=== PATIENT | male | born 1980 | race Caucasian/White ===

== ENCOUNTER → 2016-06-20 | Outpatient (CLI) | payer BC ==
[~2016-06-20] MED LIST: AMOX400T12 PO; BENZ200C25 PO; BUTA1TAB46 PO; CITA40TA19 PO; CTLP20T PO; DOCU-143 PO; FAMO20TA5 PO; FLUT9.9S NS; HYDR-3812 PO; HYDR25CA92 PO; MELO-198 PO; ONDA-42 SL; ONDA4TAB8 SL; SUMA25TA4; SUMA25TA4 PO; TOPI100T PO; TPR100T PO
--- NOTE | 2016-06-20 15:09 | Diagnostic Imaging Report ---
PROCEDURE: US Gallbladder. TECHNIQUE: Multiple real-time grayscale images were obtained over the right upper quadrant in various projections. INDICATION: Abdominal pain. FINDINGS: There are no prior studies available for comparison. The CT chest exam of 03/02/2018 failed to show any abnormality of the gallbladder. On this study, there is no evidence for cholelithiasis or acute cholecystitis and the common bile duct is not dilated. The liver does not appear to be enlarged. There is no focal mass involving the liver and the biliary tree is not abnormally distended. The pancreas is obscured by bowel gas as is the proximal aorta. The right kidney is within normal limits. IMPRESSION: 1. There is no evidence for cholelithiasis or acute cholecystitis. 2. If clinical concern regarding an underlying abnormality of the gallbladder persists, then a nuclear medicine hepatobiliary scan will be recommended for further study. Dictated by: Dictated on workstation # [id number]
== END ==
LOC: RAD 08:21
PROVIDERS: ATTEND Family Medicine
DX: R10.84 Generalized abdominal pain (principal)
CPT/HCPCS: 76705

== ENCOUNTER → 2016-07-10 | Outpatient (CLI) | payer BC ==
[~2016-07-10] MED LIST changes: +CATHETER FLUSH 10 ML SYR IV PRN
--- NOTE | 2016-07-10 13:24 | Diagnostic Imaging Report ---
EXAMINATION: HIDA with EF measurements Indication: Abdominal pain TECHNIQUE: After the intravenous administration of 5.1 mCi of Tc 99m Choletec, imaging over the abdomen was obtained. This was followed by administration of Ensure orally to stimulate intrinsic CCK secretion, followed by continued imaging with ejection fraction measured. FINDINGS: There is homogeneous uptake in the liver with prompt bile duct and gallbladder filling seen. Bowel activity is seen at 10 minutes. Based on further imaging and gallbladder area of interest activity measurements after the administration of Ensure, the gallbladder ejection fraction is estimated at 17%. IMPRESSION: 1. Normal hepatobiliary uptake and Gallbladder filling. 2. Biliary dyskinesia. Poor gallbladder ejection fraction. Dictated by: Dictated on workstation # [id number]
== END ==
LOC: CARD 09:48
PROVIDERS: ATTEND Family Medicine
DX: R10.84 Generalized abdominal pain (principal)
CPT/HCPCS: 78227

== ENCOUNTER 2016-07-11 15:51 | Emergency (ER) | payer BC ==
[~2016-07-11] VITALS: Ht 182.9 cm; Wt 97.5 kg
[~2016-07-11 15:51] MED LIST changes: -CATHETER FLUSH 10 ML SYR IV PRN; -CITA40TA19 PO; -DOCU-143 PO; -FLUT9.9S NS; -HYDR-3812 PO; -SUMA25TA4; -SUMA25TA4 PO; -TOPI100T PO
[2016-07-11] MEDS ORDERED: PROMETHAZINE INJ 25 MG/ML (PHENERGAN) AMP IVP STA (16:14)
[2016-07-11] MEDS ORDERED: KETOROLAC 30 MG/ML VIAL IVP STA (16:14)
[2016-07-11] MEDS ORDERED: diphenhydrAMINE 50 MG/ML INJ (BENADRYL) IV STA (16:14)
[2016-07-11] MEDS ORDERED: NS IV 1000 ML 1,000 ML IV ONE (16:14)
--- NOTE | 2016-07-11 16:18 | ED Headache ---
General Chief Complaint: Head/Cervical Problems Stated Complaint: MIGRAINE Source: patient Exam Limitations: no limitations History of Present Illness Time seen by provider: 16:07 Initial Comments Here with report of headache that started at the base of his neck and then moved and behind his eyes over the last 12 hours. He did take an Imitrex this morning that did not resolve the pain. He did sleep and then took another Imitrex when he woke up. He vomited twice after that. Does have history of migraines and states this is fairly typical. Denies any recent illness, fevers or upper respiratory infection. Timing/Duration: constant, other (12 hours) Severity/Quality: moderate Location: frontal, occipital, parietal Associated Symptoms: No fever/chills, nausea/vomiting, No nasal congestion, No nasal drainage, No seizures, No stiff neck, No weakness Allergies and Home Medications Allergies Coded Allergies: No Known Drug Allergies (Unverified , 04/01/13) Home Medications Citalopram Hydrobromide 20 Mg Tablet, 1 EACH PO DAILY, (Reported) Sumatriptan Succinate 25 Mg Tablet, #8 (Reported) Topiramate 100 Mg Tablet, 1 TAB PO BID, #30 (Reported) Constitutional: see HPI, No chills, No fever Eyes: See HPI, Denies Drainage, Photophobia Ears, Nose, Mouth, Throat: no symptoms reported Respiratory: no symptoms reported Cardiovascular: no symptoms reported Gastrointestinal: nausea, vomiting Genitourinary: no symptoms reported All Other Systems Reviewed Negative Unless Noted: Yes Past Lkvnylu-Wklwgj-Tkyhmo Hx Patient Social History Alcohol Use: Denies Use Recreational Drug Use: No Smoking Status: Never a Smoker Recent Foreign Travel: No Contact w/Someone Who Travel: No Recent Hopitalizations: No Immunizations Up To Date Tetanus Booster (TDap): Unknown PED Vaccines UTD: Yes Seasonal Allergies Seasonal Allergies: Yes Surgeries HX Surgeries: No Respiratory Hx Respiratory Disorders: Yes Respiratory Disorders: Sleep Apnea Cardiovascular Hx Cardiac Disorders: No Neurological Hx Neurological Disorders: Yes Neurological Disorders: Headaches /Migraines Reproductive System Hx Reproductive Disorders: No Sexually Transmitted Disease: No Genitourinary Hx Genitourinary Disorders: No Gastrointestinal Hx Gastrointestinal Disorders: Yes Gastrointestinal Disorders: Gastroesophageal Reflux Musculoskeletal Hx Musculoskeletal Disorders: Yes Musculoskeletal Disorders: Arthritis, Chronic Back Pain Endocrine Hx Endocrine Disorders: No HEENT HX ENT Disorders: No Cancer Hx Cancer: No Psychosocial Hx Psychiatric Problems: Yes Behavioral Health Disorders: Depression Integumentary HX Skin/Integumentary Disorder: No Blood Transfusions Hx Blood Disorders: No Adverse Reaction to a Blood Tr: No Reviewed Nursing Assessment Reviewed/Agree w Nursing PMH: Yes Family Medical History Significant Family History: No Pertinent Family Hx Physical Exam Vital Signs Vital Sign - Last 12Hours 07/11/16 16:05 Temp 97.4 Pulse 79 Resp 18 B/P (MAP) 137/91 Pulse Ox 99 Capillary Refill : General Appearance: WD/WN, no apparent distress HEENT: PERRL/EOMI, pharynx normal Neck: full range of motion, supple Cardiovascular: regular rate, rhythm, no murmur Respiratory: lungs clear, normal breath sounds Gastrointestinal: non tender, soft Back: normal inspection, no CVA tenderness, no vertebral tenderness Extremities: non-tender, normal inspection Psychiatric: alert, oriented x 3 Crainal Nerves: normal hearing, normal speech, PERRL Coordination/Gait: normal gait Motor/Sensory: no motor deficit, no sensory deficit, no pronator drift Skin: normal color, warm/dry Progress/Results/Core Measures Results/Orders My Orders Orders - NHI FARIA MD Saline Lock/Iv-Start (07/11/16 16:14) Ns Iv 1000 Ml (Sodium Chloride 0.9%) (07/11/16 16:14) Promethazine Injection (Phenergan Injec (07/11/16 16:14) Diphenhydramine Injection (Benadryl Inje (07/11/16 16:14) Ketorolac Injection (Toradol Injection) (07/11/16 16:14) Medications Given in ED Current Medications Medications Dose Ordered Sig/Tyson Route Start Time Stop Time Status Last Admin Dose Admin Sodium Chloride 1,000 ml @ 0 mls/hr Q0M ONCE IV 07/11/16 16:14 07/11/16 16:17 DC 07/11/16 16:27 1,000 MLS/HR Vital Signs/I&O Vital Sign - Last 12Hours 07/11/16 16:05 Temp 97.4 Pulse 79 Resp 18 B/P (MAP) 137/91 Pulse Ox 99 Progress Note : Progress Note Seen and evaluated. IV, normal saline 1 L bolus, Phenergan 25 mg IV, Benadryl 25 mg IV and Toradol 30 mg IV. Monitor patient. 1722: Overall patient feels better. Discharged home with return precautions. Patient verbalize understanding instructions and agreement with plan. Departure Impression Impression: Primary Impression: Migraine Qualified Codes: G43.009 - Migraine without aura, not intractable, without status migrainosus Disposition: HOME, SELF-CARE Condition: Improved Departure-Patient Inst. Decision time for Depature: 17:23 Referrals: MARGIE KENNEY MD (PCP/Family) Primary Care Physician Patient Instructions: Migraine Headache (DC) Add. Discharge Instructions: All discharge instructions reviewed with patient and/or family. Voiced understanding. Continue home medications as directed. Drink plenty of fluids. You may take ibuprofen 800 mg at onset of headache and this may reduce your migraines. Follow-up with your doctor for recheck and further evaluation and discussion of long-term migraine medication. Return for worse pain, fever, vomiting, weakness , breathing problems or other concerns as needed. NHI FARIA MD Jul 11, 2016 16:18
[2016-07-11] MEDS ORDERED: SUMA25TA4 (16:20)
[2016-07-11 17:33] VITALS: BP 128/88
[2016-07-27] MEDS ORDERED: DOCU-143 PO (11:38)
[2016-07-27] MEDS ORDERED: HYDR-3812 PO (11:38)
--- OUTSIDE RECORDS SUMMARY | 2016-07-30 04:31 | XMS REPORT ---
Author Author MARGIE KENNEY eClinical[employer] Address Unknown Phone Unavailable Care Team Providers Care Button Spindler Name Role Phone MARGIE KENNEY CP Unavailable Allergies, Adverse Reactions, Alerts Substance Reaction Event Type N.K.D.A. Info Not Available Non Drug Allergy Problems Problem Type Condition Code Onset Dates Condition Status Problem Obstructive sleep apnea G47.33 Active Problem Generalized anxiety disorder F41.1 Active Problem Seizure disorder G40.909 Active Problem Low back pain M54.5 Active Assessment Obstructive sleep apnea G47.33 Active Medications Medication Code System Code Instructions Start Date End Date Status Dosage citalopram NDC 0 40 mg June 16, 2014 1 tablet by Oral route 1 time per day Topiramate NDC [address]-31 100 mg June 16, 2014 take 1 tablet ( 100 mg) by oral route 2 times per day Procedures Procedure Coding System Code Date Office Visit, Est Pt., Level 3 CPT-4 63200 Mar 18, 2015 Vital Signs Date/Time: Mar 18, 2015 Temperature 97.0 F Weight 224.2 lbs Height 72 in BMI 30.40 Index Blood Pressure Diastolic 80 mmHg Blood Pressure Systolic 118 mmHg Cardiac Monitoring Heart Rate 78 bpm Results No Known Results Summary Purpose eClinicalWorks Submission
--- OUTSIDE RECORDS SUMMARY | 2016-07-30 04:31 | XMS REPORT ---
Author SVETA Tinoco [facility] eClinicalWorks Address Unknown Phone Unavailable Care Team Providers Care Route Manager Name Role Phone SVETA MTZ CP Unavailable Allergies, Adverse Reactions, Alerts Substance Reaction Event Type N.K.D.A. Info Not Available Non Drug Allergy Problems Problem Type Condition Code Onset Dates Condition Status Problem Obstructive sleep apnea G47.33 Active Problem Generalized anxiety disorder F41.1 Active Problem Seizure disorder G40.909 Active Problem Low back pain M54.5 Active Assessment Rhinitis J31.0 Active Medications Medication Code System Code Instructions Start Date End Date Status Dosage Topiramate [facility] [address]-27 100 mg June 16, 2014 take 1 tablet ( 100 mg) by oral route 2 times per day Claritin-D 24 Hour [facility] [place] [address]-62 10-240 MG Orally Once a day Apr 06, 2015 Apr 20, 2015 1 tablet as needed citalopram [facility] 0 40 mg June 16, 2014 1 tablet by Oral route 1 time per day Flonase Allergy Relief [facility] [place] [address]-76 50 MCG/ACT Nasally Once a day Apr 06, 2015 1 spray in each nostril Procedures Procedure Coding System Code Date Office Visit, Est Pt., Level 3 CPT-4 84009 Apr 06, 2015 Vital Signs Date/Time: Apr 06, 2015 Temperature 97.9 F Weight 219.1 lbs Height 72 in BMI 29.71 Index Blood Pressure Diastolic 84 mmHg Blood Pressure Systolic 122 mmHg Cardiac Monitoring Heart Rate 80 bpm Results No Known Results Summary Purpose eClinicalWorks Submission
--- OUTSIDE RECORDS SUMMARY | 2016-07-30 04:31 | XMS REPORT ---
Author ELOISE Aivles [facility] eClinicalWorks Address Unknown Phone Unavailable Care Team Providers Care Lead Technologist In Cytogenetics Name Role Phone ELOISE TODD Unavailable Allergies, Adverse Reactions, Alerts Substance Reaction Event Type N.K.D.A. Info Not Available Non Drug Allergy Problems Problem Type Condition Code Onset Dates Condition Status Problem Obstructive sleep apnea G47.33 Active Problem Generalized anxiety disorder F41.1 Active Problem Seizure disorder G40.909 Active Assessment Acute vomiting R11.10 Active Problem Low back pain M54.5 Active Assessment Acute intractable tension-type headache G44.201 Active Medications Medication Code System Code Instructions Start Date End Date Status Dosage Topiramate [facility] [address]-53 100 mg June 16, 2014 take 1 tablet ( 100 mg) by oral route 2 times per day Flonase Allergy Relief [facility] [address]-17 50 MCG/ACT Nasally Once a day Apr 06, 2015 1 spray in each nostril citalopram [facility] 0 40 mg June 16, 2014 1 tablet by Oral route 1 time per day Claritin-D 24 Hour [facility] [address]-55 10-240 MG Orally Once a day Apr 06, 2015 Apr 20, 2015 1 tablet as needed Promethazine HCl [facility] [address]-30 12.5 MG Orally every 6 hrs, prn n/v/ Apr 08, 2015 Apr 11, 2015 1 tablet as needed Procedures Procedure Coding System Code Date PHENERGAN (IM) 12.5 MG (25 MG/ML) CPT-4 J2550 Apr 08, 2015 THER/PROPH/DIAG INJ, SC/IM CPT-4 06781 Apr 08, 2015 Office Visit, Est Pt., Level 3 CPT-4 46081 Apr 08, 2015 TORADOL (IM) 60 MG/2ML (UP TO 15 MG) CPT-4 J1885 Apr 08, 2015 Vital Signs Date/Time: Apr 08, 2015 Temperature 97.6 F Weight 217.2 lbs Height 72 in BMI 29.45 Index Blood Pressure Diastolic 90 mmHg Blood Pressure Systolic 120 mmHg Cardiac Monitoring Heart Rate 78 bpm Results No Known Results Summary Purpose eClinicalWorks Submission
--- OUTSIDE RECORDS SUMMARY | 2016-07-30 04:31 | XMS REPORT ---
Author Author MARGIE KENNEY [facility] eClinicalWorks Address Unknown Phone Unavailable Care Team Providers Care Drafter Structural Name Role Phone MARGIE KENNEY Unavailable Allergies No Known Allergies Problems Problem Type Condition Code Onset Dates Condition Status Problem Obstructive sleep apnea G47.33 Active Problem Generalized anxiety disorder F41.1 Active Problem Seizure disorder G40.909 Active Problem Low back pain M54.5 Active Medications No Known Medications Results No Known Results Summary Purpose eClinicalWorks Submission
--- OUTSIDE RECORDS SUMMARY | 2016-07-30 04:31 | XMS REPORT ---
Author Author PABLITOMARGIE WOLFE Organization [facility] Address [address] [place] [address] Care Team Providers Care Clinical Psychology Teacher Name Role Phone MARGIE KENNEY Unavailable PROBLEMS Type Condition ICD9-CM Code MSR77-BX Code Onset Dates Condition Status SNOMED Code Assessment Screening, lipid Z13.220 Dec, Active 984848861 Problem Cervicalgia M54.2 Active 564744878 Problem Headache, chronic migraine without aura G43.709 Active 181158647148441 Problem Low back pain M54.5 Active 811481477 Assessment Seizure disorder G40.909 Dec, Active 201571616 Problem Seizure disorder G40.909 Active 039060812 Problem Generalized anxiety disorder F41.1 Active 347738605 ALLERGIES Substance Reaction Event Type Date Status N.K.D.A. Unknown Non Drug Allergy Dec, Unknown SOCIAL HISTORY No smoking Hx information available PLAN OF CARE VITAL SIGNS Height 72 in 2015-12-23 Weight 214.4 lbs 2015-12-23 Heart Rate 78 bpm 2015-12-23 Respiratory Rate 18 2015-12-23 BMI 29.07 kg/m2 2015-12-23 Blood pressure systolic 124 mmHg 2015-12-23 Blood pressure diastolic 82 mmHg 2015-12-23 MEDICATIONS Medication Instructions Dosage Frequency Start Date End Date Duration Status Flonase Allergy Relief 50 MCG/ACT Nasally Once a day 1 spray in each nostril 24h Mar, 30 day(s) Active Citalopram Hydrobromide 40MG Orally Once a day 1 tablet 24h 90 days Active Topiramate 100MG Orally 3 times a day 1 tablet 8h 90 days Active Imitrex 25 MG Orally UD, no more than 200 mg/24h 1 tablet as needed at onset of headache, can repeat one in 2 hours if headache still present August, Active RESULTS No Results PROCEDURES Procedure Date Ordered Related Diagnosis Body Site Office Visit, Est Pt., Level 3 Dec 23, 2015 IMMUNIZATIONS No Known Immunizations
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
== END 2016-07-11 17:33 | disposition home or self-care (01) ==
LOC: EDUNIT# 15:51 → ER 15:52
DX: G43.909 Migraine, unspecified, not intractable, without status migrainosus (principal)
CPT/HCPCS: 96361; 96374; 96375

== ENCOUNTER 2016-07-24 05:34 | Outpatient (CLI) | payer BC ==
[~2016-07-24] VITALS: Ht 182.9 cm; Wt 98.5 kg
[~2016-07-24 05:34] MED LIST changes: +SUMA25TA4
[2016-07-24] MEDS ORDERED: SUMA25TA4 PO (09:51)
[2016-07-24] MEDS ORDERED: FLUT9.9S NS (09:51)
[2016-07-24] MEDS ORDERED: TOPI100T PO (09:51)
[2016-07-24] MEDS ORDERED: CITA40TA19 PO (09:51)
[2016-07-24 09:55] VITALS: BP 128/80
[2016-07-24 10:21] LABS: BASOPHILS % (AUTO) 0 % (0-10); EOSINOPHILS # (AUTO) 0.1 10^3/uL (0.0-0.3); EOSINOPHILS % (AUTO) 1 % (0-10); LYMPHOCYTES # (AUTO) 1.7 X 10^3 (1.0-4.0); LYMPHOCYTES % (AUTO) 29 % (12-44); MEAN CORPUSCULAR HEMOGLOBIN 29 PG (25-34); MEAN CORPUSCULAR HGB CONC 34 G/DL (32-36); MEAN CORPUSCULAR VOLUME 86 FL (80-99); MEAN PLATELET VOLUME 10.3 FL (7.4-10.4); MONOCYTES # (AUTO) 0.3 X 10^3 (0.0-1.0); MONOCYTES % (AUTO) 6 % (0-12); NEUTROPHILS # (AUTO) 3.8 X 10^3 (1.8-7.8); NEUTROPHILS % (AUTO) 65 % (42-75); PLATELET COUNT 209 10^3/uL (130-400); RED CELL DISTRIBUTION WIDTH 13.7 % (10.0-14.5); WHITE BLOOD COUNT 5.8 10^3/uL (4.3-11.0)
== END 2016-07-24 11:00 | disposition home or self-care (01) ==
LOC: PREOP 05:34
PROVIDERS: ATTEND Surgery
DX: Z01.812 Encounter for preprocedural laboratory examination (principal); Z11.2 Encounter for screening for other bacterial diseases; K82.8 Other specified diseases of gallbladder
CPT/HCPCS: 36415; 85025; 87081

== ENCOUNTER 2016-07-27 08:30 | Day surgery (SDC) | payer BC ==
[~2016-07-27] VITALS: Ht 182.9 cm; Wt 98.5 kg
[~2016-07-27 08:30] MED LIST changes: +CITA40TA19 PO; +FLUT9.9S NS; +SUMA25TA4 PO; +TOPI100T PO
[2016-07-27] MEDS ORDERED: ceFAZolin 2 GM/50 ML NS 50 ML IV ONE (08:43)
[2016-07-27 08:59] VITALS: BP 105/66
--- NOTE | 2016-07-27 09:15 | Progress Note-Pre Operative ---
Pre-Operative Progress Note H&P Reviewed The H&P was reviewed, patient examined and no changes noted. Date H&P Reviewed: Jul 27, 2016 Time H&P Reviewed: 09:15 Pre-Operative Diagnosis: biliary dyskinesia SHAYNA MONTES DE OCA DO Jul 27, 2016 9:15 am
[2016-07-27] MEDS ORDERED: CATHETER FLUSH 10 ML SYR IV PRN (09:30)
[2016-07-27] MEDS ORDERED: ceFAZolin 2 GM/NS 50 ML IV ONE (09:30)
[2016-07-27] MEDS ORDERED: LACTATED RINGERS 1,000 ML IV PRN (09:45)
[2016-07-27] MEDS ORDERED: BUPIVACAINE 0.5% 30 ML (SENSORCAINE) VIAL ONE (10:09)
[2016-07-27] MEDS ORDERED: LIDOCAINE 1% INJ 20 ML (XYLOCAINE) VIAL ONE (10:09)
[2016-07-27] MEDS ORDERED: proPOfol 200 MG/20 ML (DIPRIVAN) VIAL IV ONE (10:14)
[2016-07-27] MEDS ORDERED: ROCURONIUM 50 MG/5 ML (ZEMURON) VIAL IV ONE (10:14)
[2016-07-27] MEDS ORDERED: fentaNYL INJECTION 250 MCG/5 ML AMP ONE (10:14)
[2016-07-27] MEDS ORDERED: MIDAZOLAM 2 MG/2 ML (VERSED) VIAL ONE (10:14)
[2016-07-27] MEDS ORDERED: DEXAMETHASONE PF 10 MG/ML (DECADRON) VIAL ONE (10:14)
[2016-07-27] MEDS ORDERED: LIDOCAINE PF 2% 10 ML (XYLOCAINE) AMP ONE (10:14)
[2016-07-27] MEDS ORDERED: ONDANSETRON 4 MG/2 ML (SDV) Z0FRAN ONE (10:14)
[2016-07-27] MEDS ORDERED: SEVOFLURANE (ULTANE) 15 ML INHAL SOLN ONE (10:14)
[2016-07-27] MEDS ORDERED: LACTATED RINGERS 1,000 ML IV ONE ×2 (10:14→11:15)
[2016-07-27] MEDS ORDERED: NEOSTIGMINE (BLOXIVERZ ) 1 MG/1ML 10 ML VIAL ONE (11:15)
[2016-07-27] MEDS ORDERED: GLYCOPYRROLATE 0.2 MG/ML (ROBINUL) 2 ML VIAL ONE (11:15)
--- NOTE | 2016-07-27 11:36 | Progress Note-Post Operative ---
Post-Operative Progess Note Surgeon (s)/Dictating Transcribing Machine Servicer (s) Surgeon SHAYNA MONTES DE OCA DO Dictating Transcribing Machine Servicer: Dr. Gardner Pre-Operative Diagnosis biliary dyskinesia Post-Operative Diagnosis same Post-Op Procedure Note Date of Procedure: Jul 27, 2016 Name of Procedure Performed: lap eduarda c IOC Description of the Procedure: see note Findings of the Procedure see note Anesthesia Type general Estimated blood loss (mL): minimal Specimen(s) collected/removed gallbladder SHAYNA MONTES DE OCA DO Jul 27, 2016 11:36 am
[2016-07-27] MEDS ORDERED: DOCU-143 PO (11:38)
[2016-07-27] MEDS ORDERED: HYDR-3812 PO (11:38)
--- NOTE | 2016-07-27 11:40 | Discharge Inst-Simple/Standard ---
Discharge Inst-Standard Discharge Medications New, Converted or Re-Newed RX: RX on Chart Patient Instructions/Follow Up Plan of Care/Instructions/FU: 2 weeks Shahriar Activity as Tolerated: No Discharge Diet: Regular Diet Other Inst to Patient Follow up Appt: Make appointment for 2 weeks. Instructions: No lifting greater than 10 pounds. No strenuous activity. May shower in 24 hours, no tub bath or soaking. Use incentive spirometer at home as directed. No Smoking Skin/Wound Care: May remove bandages in 24 hours. You need to leave the white strips over incision on they will fall off on their own. Symptoms to Report: Appetite Changes, Extremity Discoloration, Numbness/Tingling, Swelling Increased , Bleeding Excessive, Eyesight Changes, Pain Increased, Urine Color Change, Constipation(Persistent), Fever over 101 degree F, Pain/Pressure in chest, Urinating Difficulty, Cough Up/Vomit Blood, Heart Beat Irreg/Pounding, Pain/ Pressure in jaw, Vaginal Bleeding Increase, Cramps in feet or legs, Lightheadedness, Pain/Pressure in shoulder, Diarrhea(Persistent), Memory Changes Suddenly, Questions/Concerns, Weight gain consecutive days, Dizziness/ Fainting, Nausea/Vomiting, Shortness of Breath, Weight gain over 2 pounds. If eyes or skin turn yellow notify physician. If questions or concerns contact your physician Or seek help at emergency department. SHAYNA MONTES DE OCA DO Jul 27, 2016 11:40 am
[2016-07-27] MEDS ORDERED: morphine INJ 10 MG/ML 1ML (SYR OR VIAL) IVP PRN (11:45)
[2016-07-27] MEDS ORDERED: MEPERIDINE (DEMEROL) INJ 50 MG/ML IVP PRN (11:45)
[2016-07-27] MEDS ORDERED: HYDROmorphone (DILAUDID) 2 MG/ML VIAL IVP PRN (11:45)
[2016-07-27] MEDS ORDERED: ONDANSETRON 4 MG/2 ML (SDV) Z0FRAN IVP PRN (11:45)
[2016-07-27] MEDS ORDERED: KETOROLAC 30 MG/ML VIAL IVP ONE (11:45)
[2016-07-27] MEDS ORDERED: HYDROcodone/APAP 5 MG/325 MG (LORTAB) TAB PO PRN (11:45)
[2016-07-27] MEDS ORDERED: fentaNYL INJECTION 100 MCG/2 ML AMP IVP PRN (11:45)
[2016-07-27] MEDS ORDERED: morphine INJ 10 MG/ML 1ML (SYR OR VIAL) ONE (11:46)
[2016-07-27] MEDS ORDERED: KETOROLAC 30 MG/ML VIAL ONE (11:46)
[2016-07-27 12:35] VITALS: BP 113/79
[2016-07-27 13:05] VITALS: BP 115/77
[2016-07-27 13:35] VITALS: BP 113/77
[2016-07-27 14:00] VITALS: BP 113/77
--- NOTE | 2016-07-27 15:18 | OPERATIVE REPORT ---
DATE OF SERVICE: 07/27/2016 PREOPERATIVE DIAGNOSIS: Biliary dyskinesia. POSTOPERATIVE DIAGNOSIS: Biliary dyskinesia. PROCEDURE PERFORMED: Laparoscopic cholecystectomy with intraoperative cholangiograms. SURGEON: Evens Bess DO OCEANIC SCIENCES PROFESSOR: Janak Gardner DO assisted in retraction, dissection and closure. ANESTHESIA: General. ESTIMATED BLOOD LOSS: Minimal. COMPLICATIONS: None. INDICATION: The patient is a 35-year-old male with biliary dyskinesia. He understands risks and benefits of the procedure and wishes to proceed with the procedure. Consent is signed and on the chart. DESCRIPTION OF PROCEDURE: The patient was taken to the operating suite and prepped and draped in a sterile fashion. Surgical pause was performed. Local anesthetic with 0.5% Marcaine and 1% lidocaine in 50/50 ratio was used to anesthetize before trocar placements. A 15 blade scalpel was used to make a 12 mm incision just above the umbilicus. Cautery dissection was used to take down to the fascia which was then scored and grasped with Kochers and then abdomen was entered. Then 0 Vicryl was placed in a [id number] fashion for closure at the end of the procedure. A balloon trocar was then placed up in the abdomen and pneumoperitoneum was achieved. Under direct visualization the laparoscope with 5 mm trocar was placed in the subxiphoid region and two 5 mm trocars were placed in the right upper quadrant. The gallbladder was then grasped and elevated. There were some small adhesions of omentum to the gallbladder which were then taken down with a [place]. The cystic duct and cystic artery were then dissected out. Clips were placed on the cystic artery both proximally and distally. Clips were placed on the cystic artery distally. The cystic duct was then partially transected. Arrow catheter was then inserted into the duct and cholangiogram was then performed there. There is no filling defects, no problem with contrast making its way into the duodenum. The catheter was then removed and clips were placed in the proximal portion of the cystic duct which was then completely transected and the cystic artery was then transected. Hook cautery was used to dissect the gallbladder from the gallbladder fossa achieving hemostasis. Once the gallbladder was removed, it was placed in an Endobag and removed through the 12 mm trocar site. The abdomen was then irrigated with copious amounts of irrigation and suctioned. The abdomen was then desufflated, the trocars were removed. The 12 mm fascial defect was then closed. The skin was then closed using 4-0 Monocryl in a subcuticular fashion. Mastisol and Steri-strips were applied. Sterile band-aids were applied. The patient tolerated the procedure well without any complications and taken to the recovery room in stable condition. Job ID: [id number] DocumentID: [id number] Dictated Date: 07/27/2016 14:05:52 Supply Chain Generalist Date: 07/27/2016 15:10:42 Dictated By: DO SELAM FULTON
--- NOTE | 2016-07-27 17:26 | Diagnostic Imaging Report ---
Intraoperative cholangiogram. 8 seconds of fluoroscopy time is provided. 3 cc of Omnipaque-[id number] was used. INDICATION: Abdominal pain. Cholecystectomy performed by Dr. Bess. FINDINGS: The common bile duct and visualized intrahepatic bile ducts appear normal in caliber. No filling defect to suggest a stone and there is emptying into the jejunum with no evidence of obstruction. IMPRESSION: No evidence of CBD, stones or obstruction. Dictated by: Dictated on workstation # [id number]
== END 2016-07-27 14:00 | disposition home or self-care (01) ==
LOC: SDC 08:30
PROVIDERS: ATTEND Surgery
DX: K81.1 Chronic cholecystitis (principal)
CPT/HCPCS: 88304; 94010; 94664

== ENCOUNTER 2017-03-21 13:08 | Emergency (ER) | payer BC ==
[~2017-03-21] VITALS: Ht 182.9 cm; Wt 97.5 kg
[~2017-03-21 13:08] MED LIST changes: +DOCU-143 PO; +HYDR-3812 PO
--- OUTSIDE RECORDS SUMMARY | 2017-03-21 13:14 | XMS REPORT ---
Author Author SHERRY SCHWARTZ [facility] Address [address] [place] [address] Care Team Providers Care Ssas Developer Name Role Phone SHERRY SCHWARTZ Unavailable PROBLEMS Type Condition ICD9-CM Code [id number] Code Onset Dates Condition Status SNOMED Code Problem Biliary dyskinesia K82.8 Active 459198327 Problem Cervicalgia M54.2 Active 929846556 Problem Headache, chronic migraine without aura G43.709 Active 958542040105208 Problem Low back pain M54.5 Active 525769273 Problem Pure hypercholesterolemia E78.00 Active 287016934 Problem Seizure disorder G40.909 Active 170275417 Problem Generalized anxiety disorder F41.1 Active 904215545 ALLERGIES Substance Reaction Event Type Date Status N.K.D.A. Unknown Non Drug Allergy Mar, Unknown SOCIAL HISTORY No smoking Hx information available PLAN OF CARE VITAL SIGNS Height 72 in 2016-03-29 Weight 221.2 lbs 2016-03-29 Temperature 97.6 degrees Fahrenheit 2016-03-29 Heart Rate 72 bpm 2016-03-29 Respiratory Rate 18 2016-03-29 BMI 30.00 kg/m2 2016-03-29 Blood pressure systolic 114 mmHg 2016-03-29 Blood pressure diastolic 78 mmHg 2016-03-29 MEDICATIONS Medication Instructions Dosage Frequency Start Date End Date Duration Status Flonase Allergy Relief 50 MCG/ACT Nasally Once a day 1 spray in each nostril 24h Mar, 30 day(s) Active Topiramate 100MG Orally 3 times a day 1 tablet 8h 90 days Active Tessalon Perles 100 MG Orally Three times a day 1 capsule as needed 8h Mar, Active Amoxicillin 500 MG Orally 3 times a day 1 capsule 8h Mar, Mar, 10 day(s) Active Citalopram Hydrobromide 40MG Orally Once a day 1 tablet 24h 90 days Active Imitrex 25 MG Orally UD, no more than 200 mg/24h 1 tablet as needed at onset of headache, can repeat one in 2 hours if headache still present August, Active RESULTS No Results PROCEDURES Procedure Date Ordered Related Diagnosis Body Site Office Visit, Est Pt., Level 3 Mar 29, 2016 IMMUNIZATIONS No Known Immunizations
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
[2017-03-21] MEDS ORDERED: NS IV 1000 ML 1,000 ML IV ONE (14:20)
[2017-03-21] MEDS ORDERED: PROMETHAZINE INJ 25 MG/ML (PHENERGAN) AMP IVP STA (14:29)
[2017-03-21] MEDS ORDERED: KETOROLAC 30 MG/ML VIAL IVP STA (14:29)
[2017-03-21] MEDS ORDERED: diphenhydrAMINE 50 MG/ML INJ (BENADRYL) IV STA (14:29)
[2017-03-21 14:49] VITALS: BP 126/83
--- NOTE | 2017-03-21 15:23 | ED Headache ---
General Chief Complaint: Head/Cervical Problems Stated Complaint: MIGRAINE,VOMITING Nursing Triage Note: BEAULIEU for past 2 days, history of Migraine BEAULIEU. Reports feels the same. Also c/o vomiting and nausea and neck pain. Denies fever. Nursing Sepsis Screen: No Definite Risk History of Present Illness Time seen by provider: 14:20 Initial Comments 36-year-old female reports headache for 2 days. He is on migraine medication, Imitrex, but he states he has been out for a few days. He is supposed to follow-up with Dr. Kenney to get this prescription. He has not attempted to call the clinic for an appointment with her. He denies photophobia. He does report some nausea and vomiting times 1 today Timing/Duration: 24 hours Severity/Quality: mild Location: frontal Prior Headaches/Recent Trauma: no recent headache/trauma, frequent headaches Associated Symptoms: No confusion, No fatigue, No facial pain, No fever/chills , nausea/vomiting, No nasal congestion, No numbness in legs/feet, No seizures, No sinus infection, No stiff neck, No vision changes, No weakness Allergies and Home Medications Allergies Coded Allergies: No Known Drug Allergies (Unverified , 07/24/16) Home Medications Citalopram Hydrobromide 40 Mg Tablet, 40 MG PO DAILY, (Reported) Fluticasone Propionate 9.9 Ml [place].susp, 1 SPRAY NS PRN, (Reported) Topiramate 100 Mg Tablet, 100 MG PO BID, (Reported) Constitutional: no symptoms reported Psychiatric/Neurological: See HPI, Headache All Other Systems Reviewed Negative Unless Noted: Yes Past Hticmoc-Ltmusx-Plzfzp Hx Patient Social History Alcohol Use: Denies Use Recreational Drug Use: No Smoking Status: Never a Smoker Recent Foreign Travel: No Contact w/Someone Who Travel: No Recent Infectious Disease Expo: No Recent Hopitalizations: No Physical Abuse: No Sexual Abuse: No Immunizations Up To Date Tetanus Booster (TDap): Unknown PED Vaccines UTD: Yes Date of Influenza Vaccine: Jan 15, 2017 Seasonal Allergies Seasonal Allergies: Yes Surgeries History of Surgeries: Yes Surgeries: Gallbladder Respiratory History of Respiratory Disorde: No Respiratory Disorders: Sleep Apnea Cardiovascular History of Cardiac Disorders: No Neurological History of Neurological Disord: Yes (HX-15YRS AGO OR MORE) Neurological Disorders: Headaches /Migraines, Seizure Disorder Reproductive System Hx Reproductive Disorders: No Sexually Transmitted Disease: No HIV/AIDS: No Genitourinary History of Genitourinary Disor: No Gastrointestinal History of Gastrointestinal Di: Yes Gastrointestinal Disorders: Gastroesophageal Reflux Musculoskeletal History of Musculoskeletal Dis: Yes Musculoskeletal Disorders: Arthritis, Chronic Back Pain Endocrine History of Endocrine Disorders: No HEENT Loss of Vision: Bilateral Hearing Impairment: Denies Cancer History of Cancer: No Psychosocial History of Psychiatric Problem: Yes Behavioral Health Disorders: Anxiety Suicide Risk Score: 0 Integumentary History of Skin or Integumenta: No Blood Transfusions History of Blood Disorders: No Adverse Reaction to a Blood Tr: No (N/A) Reviewed Nursing Assessment Reviewed/Agree w Nursing PMH: Yes Family Medical History Significant Family History: No Pertinent Family Hx Physical Exam Vital Signs Vital Sign - Last 12Hours 03/21/17 14:08 Temp 97.8 Pulse 66 Resp 16 B/P (MAP) 124/70 (88) Pulse Ox 97 O2 Delivery Room Air Capillary Refill : Less Than 3 Seconds General Appearance: WD/WN, no apparent distress HEENT: PERRL/EOMI, normal ENT inspection, TMs normal, pharynx normal, No photophobia Neck: non-tender, full range of motion, supple, normal inspection Cardiovascular: normal peripheral pulses, regular rate, rhythm Respiratory: chest non-tender, lungs clear Back: normal inspection, no CVA tenderness Psychiatric: alert, oriented x 3, depressed affect Crainal Nerves: normal hearing, normal speech, PERRL Coordination/Gait: normal finger to nose, normal gait, negative Romberg's sign Motor/Sensory: no motor deficit, no sensory deficit Skin: normal color, warm/dry Lymphatic: no adenopathy Progress/Results/Core Measures Results/Orders My Orders Orders - LETHA EPPS Saline Lock/Iv-Start (03/21/17 14:20) Ns Iv 1000 Ml (Sodium Chloride 0.9%) (03/21/17 14:20) Ketorolac Injection (Toradol Injection) (03/21/17 14:29) Promethazine Injection (Phenergan Injec (03/21/17 14:29) Diphenhydramine Injection (Benadryl Inje (03/21/17 14:29) Medications Given in ED Current Medications Medications Dose Ordered Sig/Tyson Route Start Time Stop Time Status Last Admin Dose Admin Sodium Chloride 1,000 ml @ 0 mls/hr Q0M ONCE IV 12/6/17 14:20 03/21/17 14:21 DC 03/21/17 14:31 0 MLS/HR Vital Signs/I&O Vital Sign - Last 12Hours 03/21/17 03/21/17 03/21/17 14:08 14:49 15:25 Temp 97.8 Pulse 66 55 52 Resp 16 18 18 B/P (MAP) 124/70 (88) 126/83 (97) Pulse Ox 97 99 99 O2 Delivery Room Air Room Air Room Air Blood Pressure Mean: 97 Progress Note : Time: 14:20 Progress Note Initial evaluation completed, recommended normal saline 1 L IV, Toradol 30 mg IV , Phenergan 12.5 mg IV, and Benadryl 50 mg IV. Will reevaluate. 1515 patient reports headache has improved. He will follow-up with Dr. Kenney for medication refills. Discharge instructions and review precautions reviewed, all questions answered. Departure Impression Impression: Primary Impression: Headache Qualified Codes: R51 - Headache Disposition: 01 HOME, SELF-CARE Condition: Improved Departure-Patient Inst. Decision time for Depature: 15:10 Referrals: MARGIE KENNEY MD (PCP/Family) Primary Care Physician Patient Instructions: Headache, Adult (DC) Add. Discharge Instructions: You can take Ibuprofen 600 mg alternating with Tylenol or Excedrin every 4 hours. Increase water intake, 1 bottle every 2 hours. Follow up with Dr. Kenney for refills of medication. Return to the emergency department if symptoms worsen, new problems or concerns. All discharge instructions reviewed with patient and/or family. Voiced understanding. Copy Copies To 1: MARGIE KENNEY MD, AMY ARNP Mar 21, 2017 15:23
[2017-03-21 15:25] VITALS: BP 115/75
== END 2017-03-21 15:30 | disposition home or self-care (01) ==
LOC: EDUNIT# 13:08 → ER 13:10
DX: R51 Headache (principal); G47.30 Sleep apnea, unspecified; G43.909 Migraine, unspecified, not intractable, without status migrainosus; G40.909 Epilepsy, unspecified, not intractable, without status epilepticus; K21.9 Gastro-esophageal reflux disease without esophagitis; F41.9 Anxiety disorder, unspecified

== ENCOUNTER 2017-05-26 16:51 | Emergency (ER) | payer BC ==
[~2017-05-26] VITALS: Ht 182.9 cm; Wt 97.5 kg
[~2017-05-26 16:51] MED LIST changes: +ACHD5005 PO; -HYDR-3812 PO
--- NOTE | 2017-05-26 17:22 | ED Back Pain ---
General Chief Complaint: Back Problems Stated Complaint: LOWER BACK PAIN Nursing Triage Note: PT TO ED 10 W/ C/O BACK PAIN ONSET X2 WKS, WORSE TODAY. REPORTS WAS SEEN AT URGENT CARE LAST WEEK, TOLD HIS "HIPS ARE UNEVEN". STATES HE WENT TO HIS CHIROPRACTER THE NEXT DAY, WAS MANIPULATED AT THAT TIME, REPORTED SOME IMPROVEMENT BUT PAIN RETURNED. STATES PAIN RADIATES DOWN RT LEG. DENIES LOSS OF BOWEL OR BLADDER Nursing Sepsis Screen: No Definite Risk Source of Information: Patient Exam Limitations: No Limitations History of Present Illness Date Seen by Provider: May 26, 2017 Time Seen by Provider: 17:22 Initial Comments 36-year-old male patient presents to the emergency department with complaints of low back pain for 2 weeks, worse today. Patient was seen at urgent care last week and was "told his hips were uneven." Patient was adjusted by a chiropractor. Denies improvement in symptoms. Timing/Duration: Getting Worse, Other (2 weeks onset) Pain/Injury Location: Back Radiation: Buttocks (radiates down the right buttock), Upper Legs (right thigh) Method of Injury: Unknown Modifying Factors: Worse With Movement Associated Symptoms: muscle spasms, No fever, No weakness, No numbness in legs/ feet, No tingling in legs/feet, No sensory/motor loss, lower back pain, No loss of bladder control, No loss of bowel control Allergies and Home Medications Allergies Coded Allergies: No Known Drug Allergies (Unverified , 07/24/16) Home Medications Citalopram Hydrobromide 40 Mg Tablet, 40 MG PO DAILY, (Reported) Fluticasone Propionate 9.9 Ml [place].susp, 1 SPRAY NS PRN, (Reported) Hydrocodone/Acetaminophen 1 Each Tablet, 1 EACH PO Q4H PRN for PAIN-MODERATE TO SEVERE, #14 Ref 0 Prescribed by: SRINIVASAN URIARTE on 05/26/171740 Naproxen 500 Mg Tablet, 500 MG PO BID, #20 Ref 0 Prescribed by: SRINIVASAN URIARTE on 05/26/171740 Orphenadrine Citrate 100 Mg Tablet.er, 100 MG PO BID PRN for SPASMS, #14 Ref 0 Prescribed by: SRINIVASAN URIARTE on 05/26/171740 Prednisone 20 Mg Tab, 40 MG PO DAILY, #8 Ref 0 Prescribed by: SRINIVASAN URIARTE on 2/10/18 1741 Topiramate 100 Mg Tablet, 100 MG PO BID, (Reported) Constitutional: no symptoms reported Respiratory: no symptoms reported Cardiovascular: no symptoms reported Gastrointestinal: no symptoms reported Genitourinary: no symptoms reported Musculoskeletal: see HPI, back pain, joint pain (right buttock and right thigh pain), No joint swelling, No neck pain Skin: no symptoms reported Psychiatric/Neurological: No Symptoms Reported All Other Systems Reviewed Negative Unless Noted: Yes (Negative excepted noted.) Past Flfwvpt-Ppxtwu-Fuzqhh Hx Patient Social History Alcohol Use: Denies Use Recreational Drug Use: No Smoking Status: Never a Smoker Recent Foreign Travel: No Contact w/Someone Who Travel: No Recent Infectious Disease Expo: No Recent Hopitalizations: No Physical Abuse: No Sexual Abuse: No Mistreated: No Fear: No Immunizations Up To Date Tetanus Booster (TDap): Unknown PED Vaccines UTD: Yes Date of Influenza Vaccine: Jan 15, 2017 Seasonal Allergies Seasonal Allergies: Yes Surgeries History of Surgeries: Yes Surgeries: Gallbladder Respiratory History of Respiratory Disorde: No Respiratory Disorders: Sleep Apnea Cardiovascular History of Cardiac Disorders: No Neurological History of Neurological Disord: Yes (HX-15YRS AGO OR MORE) Neurological Disorders: Headaches /Migraines, Seizure Disorder Reproductive System Hx Reproductive Disorders: No Sexually Transmitted Disease: No HIV/AIDS: No Genitourinary History of Genitourinary Disor: No Gastrointestinal History of Gastrointestinal Di: Yes Gastrointestinal Disorders: Gastroesophageal Reflux Musculoskeletal History of Musculoskeletal Dis: Yes Musculoskeletal Disorders: Arthritis, Chronic Back Pain Endocrine History of Endocrine Disorders: No HEENT Loss of Vision: Bilateral Hearing Impairment: Denies Cancer History of Cancer: No Psychosocial History of Psychiatric Problem: Yes Behavioral Health Disorders: Anxiety Suicide Risk Score: 0 Integumentary History of Skin or Integumenta: No Blood Transfusions History of Blood Disorders: No Adverse Reaction to a Blood Tr: No (N/A) Reviewed Nursing Assessment Reviewed/Agree w Nursing PMH: Yes Family Medical History Significant Family History: No Pertinent Family Hx Physical Exam Vital Signs Vital Signs - First Documented 05/26/17 16:57 Temp 96.9 Pulse 78 Resp 20 B/P (MAP) 128/87 (101) Pulse Ox 99 O2 Delivery Room Air Capillary Refill : Less Than 3 Seconds General Appearance: No Apparent Distress, WD/WN HEENT: PERRL/EOMI, Pharynx Normal, Moist Mucous Membranes Neck: Full Range of Motion, Normal Inspection, Non Tender, Supple Cardiovascular: Regular Rate, Rhythm, No Edema, No Murmur, Normal Peripheral Pulses Respiratory: Lungs Clear, Normal Breath Sounds, No Accessory Muscle Use, No Respiratory Distress Peripheral Pulses: 2+ Dorsalis Pedis (R), 2+ Left Dors-Pedis (L), 2+ Radial Pulses (R), 2+ Radial Pulses (L) Gastrointestinal: Normal Bowel Sounds, No Organomegaly, Non Tender, Soft Back: Decreased Range of Motion, Muscle Spasm, Vertebral Tenderness (mild L5- S1 and SI joint tenderness without swelling, ecchymosis, or stepoff deformity.) Extremity: Normal Capillary Refill, Normal Inspection, Normal Range of Motion, No Calf Tenderness, No Pedal Edema, Pelvis Stable, Other (rt buttock and rt posterolateral thigh ttp without swelling or deformity. patient is noted to be wearing his wallet in the back rt pocket (states he wears it in this pocket " all the time.")) Neurologic/Psychiatric: Alert, Oriented x3, No Motor/Sensory Deficits, Normal Mood/Affect Skin: Normal Color, Warm/Dry Progress/Results/Core Measures Results/Orders My Orders Orders - SRINIVASAN URIARTE Ketorolac Injection (Toradol Injection) (05/26/17 17:35) Orphenadrine Injection (Norflex Injectio (05/26/17 17:35) Prednisone Tablet (Deltasone Tablet) (05/26/17 17:45) Rx-Hydrocodone/Apap 5-325 Mg (Rx-Vicodin (05/26/17 17:45) Medications Given in ED Current Medications Medications Dose Ordered Sig/Tyson Route Start Time Stop Time Status Last Admin Dose Admin Acetaminophen/ Hydrocodone Bitart 1 ea Q4H PRN PO 05/26/17 17:45 05/26/17 18:11 DC 05/26/17 17:48 1 EA Prednisone 40 mg ONCE ONCE PO 05/26/17 17:45 05/26/17 17:46 DC 05/26/17 17:45 40 MG Vital Signs/I&O Vital Sign - Last 12Hours 05/26/17 05/26/17 16:57 18:03 Temp 96.9 Pulse 78 78 Resp 20 18 B/P (MAP) 128/87 (101) Pulse Ox 99 99 O2 Delivery Room Air Room Air Blood Pressure Mean: 101 Departure Communication (Admissions) Progress Notes Patient seen and evaluated. Patient given Toradol 30 mg IM, Norflex 60 mg IM, and prednisone 40 mg by mouth 1 dose. He was also given a take-home pack of hydrocodone. Then for discharge to home. Patient follow-up with his family care provider. Return precautions were discussed with the patient as described in the discharge instructions of this report. Patient verbalizes understanding and agrees with the treatment plan. Impression Impression: Primary Impression: Lumbar radiculopathy Disposition: HOME, SELF-CARE Condition: Improved Departure-Patient Inst. Decision time for Depature: 17:37 Referrals: MARGIE SANCHEZ MD (PCP/Family) Primary Care Physician Patient Instructions: Radiculopathy (DC) Add. Discharge Instructions: All discharge instructions reviewed with patient and/or family. Voiced understanding. Medications as instructed. Ice pack or heating pads as needed for pain. Avoid heavy lifting, pushing, pulling, twisting, bending, climbing for 3-5 days. Increase activity as tolerated. Avoid wearing in your wallet or phone in your back pocket. Avoid sitting on hard surfaces. Consider using an inversion table. Consider following-up with a chiropractor and/or any massage therapist. Follow-up with Dr. Sanchez as an outpatient for recheck if no improvement in symptoms in 7-10 days for possible need of outpatient x-ray of the low back and/or MRI. Return in the emergency department for worsened symptoms, bowel incontinence, bladder incontinence, numbness of the genitals, numbness/weakness of the lower extremities, or any other concerns. Scripts Naproxen (Naprosyn) 500 Mg Tablet 500 MG PO BID, #20 TAB 0 Refills Prov: SRINIVASAN URIARTE 05/26/17 Prednisone (Prednisone) 20 Mg Tab 40 MG PO DAILY, #8 TAB 0 Refills Prov: SRINIVASAN URIARTE 05/26/17 Orphenadrine Citrate (Orphenadrine Citrate) 100 Mg Tablet.er 100 MG PO BID Y for SPASMS, #14 TAB 0 Refills Prov: SRINIVASAN URIARTE 05/26/17 Hydrocodone/Acetaminophen (Hydrocodone-Acetamin 5-325 mg) 1 Each Tablet 1 EACH PO Q4H Y for PAIN-MODERATE TO SEVERE, #14 TAB 0 Refills Prov: SRINIVASAN URIARTE 05/26/17 SRINIVASAN URIARTE May 26, 2017 17:22
[2017-05-26] MEDS ORDERED: ORPHENADRINE 60 MG/2 ML (NORFLEX) AMP IM STA (17:35)
[2017-05-26] MEDS ORDERED: KETOROLAC 60 MG/2 ML VIAL IM STA (17:35)
[2017-05-26] MEDS ORDERED: PRD20T PO (17:41)
[2017-05-26] MEDS ORDERED: HYDR-3812 PO (17:41)
[2017-05-26] MEDS ORDERED: ORPH100T PO (17:41)
[2017-05-26] MEDS ORDERED: NAPR-1071 PO (17:41)
[2017-05-26] MEDS ORDERED: predniSONE 20 MG TAB PO ONE (17:45)
[2017-05-26] MEDS ORDERED: RX-HYDROCODONE/APAP 5/325 MG #4 TAB PK PO PRN (17:45)
[2017-05-26 18:03] VITALS: BP 116/83
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
== END 2017-05-26 18:03 | disposition home or self-care (01) ==
LOC: EDUNIT# 16:51 → ER 16:52
DX: M54.16 Radiculopathy, lumbar region (principal); F41.9 Anxiety disorder, unspecified; K21.9 Gastro-esophageal reflux disease without esophagitis; G43.909 Migraine, unspecified, not intractable, without status migrainosus; G40.909 Epilepsy, unspecified, not intractable, without status epilepticus; G47.30 Sleep apnea, unspecified; Z79.52 Long term (current) use of systemic steroids; Z98.890 Other specified postprocedural states
CPT/HCPCS: 96372; 99284

== ENCOUNTER 2017-09-30 18:26 | Emergency (ER) | payer BC ==
[~2017-09-30] VITALS: Ht 182.9 cm; Wt 97.5 kg
[~2017-09-30 18:26] MED LIST changes: +HYDR-3812 PO; +NAPR-1071 PO; +ORPH100T PO; +PRD20T PO
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
--- NOTE | 2017-09-30 19:23 | ED Headache ---
General Chief Complaint: Head/Cervical Problems Stated Complaint: MIGRAINE Nursing Triage Note: Patient advises he began experiencing a migraine last night that has become progressively worse. He advises a hx. of migraines and stated that he took imitrex at 10am and again at 1630. Nursing Sepsis Screen: No Definite Risk Source: patient Exam Limitations: no limitations History of Present Illness Date Seen by Provider: Sep 30, 2017 Time Seen by Provider: 19:13 Initial Comments The patient presents to the ER by private conveyance with a chief complaint is having a migraine headache started yesterday. It's presenting as his usual migraine headache and this morning around 10:00 he took a dose of sumatriptan and went to sleep but he was awoken at 4:00 and he was still having some headaches about 4:30 he took a second dose of the sumatriptan. Feels the headaches not getting any better. He uses to appear made and Celexa scheduled and has his headache is managed by primary care at [facility] Dr. Kenney. He says most the time this regimen works fine for his headache sometimes he has to get a little extra help. He does not have any allergies to medicines. He is not having any blurred vision weakness, numbness, dropping anything, falls, incontinence of urine, bowel. He is having some nausea but no vomiting. He's been trying to drink water but he thinks she's gotten dehydrated and has made his migraine worse. Allergies and Home Medications Allergies Coded Allergies: No Known Drug Allergies (Unverified , 07/24/16) Home Medications Citalopram Hydrobromide 40 Mg Tablet, 40 MG PO DAILY, (Reported) Fluticasone Propionate 9.9 Ml [place].susp, 1 SPRAY NS PRN, (Reported) Hydrocodone/Acetaminophen 1 Each Tablet, 1 EACH PO Q4H PRN for PAIN-MODERATE TO SEVERE Prescribed by: SRINIVASAN URIARTE on 05/26/171740 Naproxen 500 Mg Tablet, 500 MG PO BID Prescribed by: SRINIVASAN URIARTE on 05/26/171740 Orphenadrine Citrate 100 Mg Tablet.er, 100 MG PO BID PRN for SPASMS Prescribed by: SRINIVASAN URIARTE on 05/26/171740 Prednisone 20 Mg Tab, 40 MG PO DAILY Prescribed by: SRINIVASAN URIARTE on 2/10/18 1741 Topiramate 100 Mg Tablet, 100 MG PO BID, (Reported) Patient Home Medication List Home Medication List Reviewed: Yes Review of Systems Constitutional: No chills, No fever, No malaise Eyes: Denies Blindness, Denies Blurred Vision, Denies Decreased Acuity; Photophobia (mild) Ears, Nose, Mouth, Throat: denies ear pain, denies ear discharge Respiratory: No cough, No phlegm, No short of breath Cardiovascular: No chest pain, No edema, No palpitations Gastrointestinal: No abdominal pain, No constipation, No diarrhea; nausea; No vomiting Genitourinary: No discharge, No dysuria Musculoskeletal: No back pain, No joint pain Skin: No pruritus, No rash Psychiatric/Neurological: Headache; Denies Numbness, Denies Paresthesia, Denies Seizure, Denies Weakness Past Axsgvfq-Kotcik-Epbhmh Hx Patient Social History Alcohol Use: Denies Use Recreational Drug Use: No Smoking Status: Never a Smoker Recent Foreign Travel: No Contact w/Someone Who Travel: No Recent Infectious Disease Expo: No Recent Hopitalizations: No Physical Abuse: No Sexual Abuse: No Immunizations Up To Date Tetanus Booster (TDap): Unknown PED Vaccines UTD: Yes Date of Influenza Vaccine: Jan 15, 2017 Seasonal Allergies Seasonal Allergies: Yes Past Medical History Surgeries: Yes Gallbladder Respiratory: No Sleep Apnea Cardiac: No Neurological: Yes (HX-15YRS AGO OR MORE) Headaches /Migraines, Seizure Disorder Reproductive Disorders: No Sexually Transmitted Disease: No HIV/AIDS: No Genitourinary: No Gastrointestinal: Yes Gastroesophageal Reflux Musculoskeletal: Yes Arthritis, Chronic Back Pain Endocrine: No HEENT: No Loss of Vision: Bilateral Hearing Impairment: Denies Cancer: No Psychosocial: Yes Anxiety Nursing Suicide Risk Score: 0 Integumentary: No Blood Disorders: No Adverse Reaction/Blood Tranf: No (N/A) Family Medical History No Pertinent Family Hx Physical Exam Vital Signs Vital Signs - First Documented 09/30/17 19:00 Temp 97.5 Pulse 61 Resp 14 B/P (MAP) 121/83 (96) Pulse Ox 98 O2 Delivery Room Air Capillary Refill : Less Than 3 Seconds General Appearance: WD/WN, no apparent distress HEENT: PERRL/EOMI, normal ENT inspection, TMs normal, pharynx normal Neck: non-tender, full range of motion, supple, normal inspection Cardiovascular: normal peripheral pulses, regular rate, rhythm, no edema Respiratory: lungs clear, normal breath sounds, no respiratory distress, no accessory muscle use Gastrointestinal: normal bowel sounds, non tender, soft Psychiatric: alert, oriented x 3; No depressed affect Crainal Nerves: normal hearing, normal speech, PERRL Coordination/Gait: normal gait Motor/Sensory: no motor deficit Skin: normal color, warm/dry Progress/Results/Core Measures Results/Orders My Orders Orders - JESICA LUND Ketorolac Injection (Toradol Injection) (09/30/17 19:30) Acetaminophen Tablet (Tylenol Tablet) (09/30/17 19:30) Prochlorperazine Injection (Compazine In (09/30/17 19:30) Dexamethasone Injection (Decadron Inject (09/30/17 19:30) Medications Given in ED Current Medications Medications Dose Ordered Sig/Tyson Route Start Time Stop Time Status Last Admin Dose Admin Acetaminophen 1,000 mg ONCE ONCE PO 09/30/17 19:30 09/30/17 19:31 DC 09/30/17 19:33 1,000 MG Dexamethasone Sodium Phosphate 10 mg ONCE ONCE IM 09/30/17 19:30 09/30/17 19:31 DC 09/30/17 19:34 10 MG Ketorolac Tromethamine 30 mg ONCE ONCE IM 09/30/17 19:30 09/30/17 19:31 DC 09/30/17 19:34 30 MG Prochlorperazine Edisylate 10 mg ONCE ONCE IM 09/30/17 19:30 09/30/17 19:31 DC 09/30/17 19:35 10 MG Vital Signs/I&O 09/30/17 19:00 Temp 97.5 Pulse 61 Resp 14 B/P (MAP) 121/83 (96) Pulse Ox 98 O2 Delivery Room Air Blood Pressure Mean: 96 Progress Progress Note : Time: 19:21 Progress Note Since his migraine is Dat been recalcitrant to 2 doses of sumatriptan and were going to give him some Compazine, Toradol, Tylenol, dexamethasone 10 mg and send him home with a work note to get some sleep tonight and encourage him to drink a lot of fluids. His oral mucosa is moist so he should do fine on oral rehydration. Departure Impression Primary Impression: Migraine Qualified Codes: G43.009 - Migraine without aura, not intractable, without status migrainosus Disposition: HOME, SELF-CARE Condition: Stable Departure-Patient Inst. Decision time for Depature: 20:14 Referrals: MARGIE KENNEY MD (PCP/Family) Primary Care Physician Patient Instructions: Migraine Headache (DC) Add. Discharge Instructions: Go home and get some sleep. Drink lots of fluids. Return to work the following day. If your migraine does not improve then you should follow-up during business hours with your primary care doctor. All discharge instructions reviewed with patient and/or family. Voiced understanding. Work/School Note: Work Release Form Date Seen in the Emergency Department: Sep 30, 2017 Return to Work: Oct 01, 2017 Restrictions: No Restrictions Copy Copies To 1: ASHLEY CORTEZ TITUS J Sep 30, 2017 19:23
[2017-09-30] MEDS ORDERED: DEXAMETHASONE 10 MG/ML (DECADRON) 1 ML VIAL IM ONE (19:30)
[2017-09-30] MEDS ORDERED: PROCHLORPERAZINE 10 MG/2ML INJ (COMPAZINE) IM ONE (19:30)
[2017-09-30] MEDS ORDERED: ACETAMINOPHEN 500 MG TAB (TYLENOL) PO ONE (19:30)
[2017-09-30] MEDS ORDERED: KETOROLAC 30 MG/ML VIAL IM ONE (19:30)
[2017-09-30 20:20] VITALS: BP 121/83
== END 2017-09-30 20:20 | disposition home or self-care (01) ==
LOC: EDUNIT# 18:26 → ER 18:28
DX: G43.909 Migraine, unspecified, not intractable, without status migrainosus (principal); F41.9 Anxiety disorder, unspecified; K21.9 Gastro-esophageal reflux disease without esophagitis; G40.909 Epilepsy, unspecified, not intractable, without status epilepticus; G47.30 Sleep apnea, unspecified; Z79.51 Long term (current) use of inhaled steroids; Z79.52 Long term (current) use of systemic steroids
CPT/HCPCS: 96372

== ENCOUNTER 2021-08-23 22:44 | Emergency (ER) | payer BC, OTHER ==
[~2021-08-23] VITALS: Ht 183 cm; Wt 107.5 kg
[~2021-08-23 22:44] MED LIST changes: -HYDR-3812 PO
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
[2021-08-23 23:58] VITALS: BP 123/84
== END 2021-08-24 00:03 | disposition home or self-care (01) ==
LOC: EDUNIT# 22:44 → ER 22:49
DX: R55 Syncope and collapse (principal)
CPT/HCPCS: 99281